=== PATIENT | female | born 1980 | race Hispanic/Latino ===

== ENCOUNTER 2017-12-18 17:43 | Emergency (ER) | payer SELFPAY | END 2017-12-18 19:11 | disposition home or self-care (01) | LOC: ERS 17:43 | DX: S61.012A Laceration without foreign body of left thumb without damage to nail, initial encounter (principal); W26.0XXA Contact with knife, initial encounter | CPT/HCPCS: 99282 ==

== ENCOUNTER 2018-08-06 12:14 | Emergency (ER) | payer SELFPAY ==
[2018-08-06] MEDS ORDERED: Ketorolac Tromethamine 30 MG/ML VIAL ONE (16:23)
== END 2018-08-06 16:40 | disposition home or self-care (01) ==
LOC: ERS 12:14
DX: M79.622 Pain in left upper arm (principal)
CPT/HCPCS: 96372; J1885

== ENCOUNTER 2019-09-12 07:59 | Outpatient (CLI) | payer OTHER ==
--- NOTE | 2019-09-12 09:02 | CT ---
CT ABDOMEN AND PELVIS WITH IV CONTRAST: DATE: 09/12/2019. PROVIDED CLINICAL HISTORY: Nausea and vomiting. FINDINGS: Comparison 06/14/2015. The visualized lung bases are free of significant opacity. The liver, spleen, pancreas, kidneys, and adrenal glands demonstrate an unremarkable CT appearance. Heterogeneous density within the gallbladder lumen likely reflects gallstones. There is no evidence for gallbladder distention or pericholecystic inflammatory change. There is no bowel dilatation, inflammatory fat stranding, free fluid, or lymph node enlargement appar ent. There is moderate colonic fecal retention. A septate uterus is demonstrated. The osseous structures demonstrate no concerning lytic or blastic lesions. IMPRESSION: 1. Probable cholelithiasis without evidence for acute findings related to the gallbladder. 2. Other findings as described. POS: UNA
== END 2019-09-12 08:00 | disposition home or self-care (01) ==
LOC: BICCT 07:59 → SCSCT 08:00
PROVIDERS: ATTEND Physician Assistant Medical
DX: D64.9 Anemia, unspecified (principal); R11.2 Nausea with vomiting, unspecified
CPT/HCPCS: 74177

== ENCOUNTER 2020-04-09 18:45 | Emergency (ER) | payer BC ==
[2020-04-09 19:53] LABS: #Eosinphils 0.1 thou/uL (0.0-0.7); #Lymphocytes 1.5 thou/uL (1.20-3.40); #Monocytes 0.7 thou/uL (0.11-0.59); #Neutrophils 9.4 thou/uL (1.40-6.50); %Basophils 0.3 % (0.0-1.0); %Eosinophils 0.6 % (0.0-10.0); %Lymphocytes 12.8 % (21.0-51.0); %Monocytes 5.6 % (0.0-10.0); %Neutrophils 80.7 % (42.0-75.0); Hemoglobin 12.9 g/dL (12.0-16.0); Mean Corpuscular HGB CONC 33.1 g/dL (32.0-36.0); Mean Corpuscular Hemoglobin 25.2 pg (27.0-31.0); Mean Corpuscular Volume 76.1 fL (78.0-98.0); Mean Platelet Volume 8.9 fL (7.4-10.4); Platelet Count 270 thou/uL (130-400); RBC Distribution Width 16.5 % (11.5-14.5); Red Blood Cell (RBC) Count 5.11 mill/uL (4.20-5.40); White Blood Cell (WBC) Count 11.7 thou/uL (4.8-10.8)
[2020-04-09 20:16] LABS: BHCG - Serum Negative (NEGATIVE); Pregs Control Background? CLEAR/WHITE (CLR/WHITE); Pregs Control Bar Appear? YES (CONTROL BAR)
[2020-04-09 20:19] LABS: ALT (SGPT) 19 U/L (8-55); AST (SGOT) 40 U/L (5-34); Albumin 4.2 g/dL (3.5-5.0); Alkaline Phosphatase 98 U/L (40-110); Anion Gap 14 mmol/L (10-20); BUN (Urea Nitrogen) 10 mg/dL (7.0-18.7); Bilirubin, Total 0.2 mg/dL (0.2-1.2); Calc. Creatinine Clearance 0 mL/min (70-130); Calcium 9.2 mg/dL (7.8-10.44); Carbon Dioxide 23 mmol/L (22-29); Chloride 104 mmol/L (98-107); Estimated GFR-MDRD Greater than 90; Globulin 3.4 g/dL (2.4-3.5); Glucose 146 mg/dL (70-105); Lipase 63 U/L (8-78); Potassium 3.5 mmol/L (3.5-5.1); Protein, Total 7.6 g/dL (6.0-8.3); Sodium 137 mmol/L (136-145)
[2020-04-09] MEDS ORDERED: Ondansetron ODT 4 MG TAB ONE (21:29)
[2020-04-09] MEDS ORDERED: Mag-Al 1200 mg/1200 mg/30 ML UDCUP ONE (21:29)
[2020-04-09] MEDS ORDERED: Lidocaine Viscous Sol 2% 15 ml UD Cup ONE (21:29)
--- NOTE | 2020-04-11 17:13 | EKG ---
Test Reason : Blood Pressure : / mmHG Vent. Rate : 065 BPM Atrial Rate : 065 BPM P-R Int : 134 ms QRS Dur : 086 ms QT Int : 370 ms P-R-T Axes : 047 -23 027 degrees QTc Int : 384 ms Normal sinus rhythm Normal ECG Confirmed by KENNEDY BERMEO DO ([id number]), purchase request editor COURTNEY UMANA ([id number]) on 04/11/2020 5:13:24 PM Referred By: Confirmed By:KENNEDY BERMEO DO
== END 2020-04-09 22:39 | disposition home or self-care (01) ==
LOC: ERS 18:45
DX: K29.70 Gastritis, unspecified, without bleeding (principal)
CPT/HCPCS: 36415; 80053; 83690; 84703; 85025; 93005; Q0162

== ENCOUNTER 2020-08-08 10:21 | Emergency (ER) | payer BC | END 2020-08-08 11:42 | disposition home or self-care (01) | LOC: ERS 10:21 | DX: M72.2 Plantar fascial fibromatosis (principal) ==

== ENCOUNTER 2020-08-24 13:02 | Emergency (ER) | payer BC ==
[2020-08-24 14:38] LABS: #Lymphocytes 1.5 thou/uL (1.20-3.40); #Monocytes 0.6 thou/uL (0.11-0.59); #Neutrophils 9.4 thou/uL (1.40-6.50); %Basophils 0.1 % (0.0-1.0); %Eosinophils 0.3 % (0.0-10.0); %Lymphocytes 13.3 % (21.0-51.0); %Monocytes 5.2 % (0.0-10.0); Hemoglobin 11.6 g/dL (12.0-16.0); Mean Corpuscular Volume 75.2 fL (78.0-98.0); Mean Platelet Volume 8.2 fL (7.4-10.4); Platelet Count 326 thou/uL (130-400); RBC Distribution Width 14.3 % (11.5-14.5); Red Blood Cell (RBC) Count 4.81 mill/uL (4.20-5.40); White Blood Cell (WBC) Count 11.6 thou/uL (4.8-10.8)
[2020-08-24 15:04] LABS: ALT (SGPT) 14 U/L (8-55); AST (SGOT) 25 U/L (5-34); Albumin 4.1 g/dL (3.5-5.0); Alkaline Phosphatase 90 U/L (40-110); Anion Gap 14 mmol/L (10-20); BUN (Urea Nitrogen) 11 mg/dL (7.0-18.7); Bilirubin, Total 0.2 mg/dL (0.2-1.2); Calc. Creatinine Clearance 0 mL/min (70-130); Calcium 9.1 mg/dL (7.8-10.44); Carbon Dioxide 25 mmol/L (22-29); Chloride 103 mmol/L (98-107); Globulin 3.2 g/dL (2.4-3.5); Glucose 105 mg/dL (70-105); Potassium 4.1 mmol/L (3.5-5.1); Protein, Total 7.3 g/dL (6.0-8.3); Sodium 138 mmol/L (136-145)
== END 2020-08-24 17:15 | disposition home or self-care (01) ==
LOC: ERS 13:02
DX: K80.20 Calculus of gallbladder without cholecystitis without obstruction (principal); F17.210 Nicotine dependence, cigarettes, uncomplicated
CPT/HCPCS: 36415; 76705; 80053; 83690; 85025; 93005

== ENCOUNTER 2020-09-15 14:45 | Outpatient (CLI) | payer BC ==
[2020-09-16 04:50] LABS: SARS-CoV-2 PCR by NAA Not Detected (NotDetected)
== END 2020-09-15 14:46 | disposition home or self-care (01) ==
LOC: LABBT 14:45
PROVIDERS: ATTEND Specialist
DX: Z01.812 Encounter for preprocedural laboratory examination (principal); K80.10 Calculus of gallbladder with chronic cholecystitis without obstruction; R10.11 Right upper quadrant pain; Z20.822 Contact with and (suspected) exposure to COVID-19
CPT/HCPCS: 87635; U0003; U0005

== ENCOUNTER 2020-09-18 05:44 | Day surgery (SDC) | payer BC ==
[2020-09-17 09:46] VITALS: BMI 37.2
[2020-09-18] MEDS ORDERED: SUGAMMADEX SODIUM 200 MG/2 ML VIAL ONE (06:25)
[2020-09-18] MEDS ORDERED: Fentanyl 100 MCG/2 ML VIAL ONE ×2 (06:25→09:17)
[2020-09-18] MEDS ORDERED: Iothalamate Meglumine 60% 50 ML VIAL FS ONE (06:45)
[2020-09-18] MEDS ORDERED: XYLOCAINE 2%-EPI 1:100,000 20 ML VIAL ONE (06:45)
[2020-09-18] MEDS ORDERED: Bupivacaine PF 0.5% 30 ML VIAL ONE (06:45)
[2020-09-18] MEDS ORDERED: Ketorolac Tromethamine 30 MG/ML VIAL ONE ×2 (06:54→08:01)
[2020-09-18] MEDS ORDERED: Levofloxacin 500 mg/D5W 100 ml Premix Bag ONE (06:54)
[2020-09-18] MEDS ORDERED: Scopolamine 1.5 mg/72 hour Patch ONE (06:54)
[2020-09-18] MEDS ORDERED: Ondansetron PF 4 MG/2 ML Vial ONE ×2 (06:54→08:01)
[2020-09-18] MEDS ORDERED: Acetaminophen 500 MG TAB ONE (06:55)
[2020-09-18] MEDS ORDERED: Lidocaine 1% PF 5 ML VIAL ONE (08:01)
[2020-09-18] MEDS ORDERED: Rocuronium Bromide 10 MG/ML (10ML VIAL) ONE (08:01)
[2020-09-18] MEDS ORDERED: PROPOFOL 200 MG/20 ML VIAL ONE (08:01)
[2020-09-18] MEDS ORDERED: Dexamethasone 20 MG/5 ML VIAL ONE (08:01)
[2020-09-18] MEDS ORDERED: HYDROmorphone 2 MG/ML VIAL ONE (08:47)
[2020-09-18] MEDS ORDERED: Morphine 2 MG/ML VIAL ONE (09:50)
[2020-09-18] MEDS ORDERED: HYDROcodone/Acetaminophen 5/325 mg Tablet ONE (10:35)
== END 2020-09-18 11:20 | disposition home or self-care (01) ==
LOC: SDC 05:44
PROVIDERS: ATTEND Specialist
PROC: 0FT44ZZ Resection of Gallbladder, Percutaneous Endoscopic Approach (ICD-10-PCS; principal; 2020-09-18)
DX: K80.10 Calculus of gallbladder with chronic cholecystitis without obstruction (principal); F17.210 Nicotine dependence, cigarettes, uncomplicated; Z79.2 Long term (current) use of antibiotics; Z79.899 Other long term (current) drug therapy
CPT/HCPCS: 88304; J1100; J1170; J1610; J1885; J1956; J2270; J2405; J2704; J3010; Q9961; S0020

== ENCOUNTER 2020-10-22 12:29 | Outpatient (CLI) | payer BC | END 2020-10-22 12:30 | disposition home or self-care (01) | LOC: BICMAMMO 12:29 | PROVIDERS: ATTEND Physician Assistant | DX: Z12.31 Encounter for screening mammogram for malignant neoplasm of breast (principal); N64.89 Other specified disorders of breast | CPT/HCPCS: 77063; 77067 ==

== ENCOUNTER 2020-10-27 08:32 | Outpatient (CLI) | payer BC | END 2020-10-27 08:33 | disposition home or self-care (01) | LOC: BICMAMMO 08:32 | PROVIDERS: ATTEND Physician Assistant | DX: R92.2 Inconclusive mammogram (principal) | CPT/HCPCS: G0279 ==

== ENCOUNTER 2021-03-02 10:42 | Outpatient (CLI) | payer BC | END 2021-03-02 10:43 | disposition home or self-care (01) | LOC: BICULT 10:42 | PROVIDERS: ATTEND Nurse Practitioner Family | DX: D50.9 Iron deficiency anemia, unspecified (principal); D25.9 Leiomyoma of uterus, unspecified; N83.201 Unspecified ovarian cyst, right side | CPT/HCPCS: 76856; 93976 ==

== ENCOUNTER 2021-04-07 11:42 | Outpatient (CLI) | payer BC | END 2021-04-07 11:43 | disposition home or self-care (01) | LOC: BICRAD 11:42 → BICULT 11:43 | PROVIDERS: ATTEND Nurse Practitioner Family | DX: R10.9 Unspecified abdominal pain (principal); M54.50 Low back pain, unspecified; M79.604 Pain in right leg; R11.10 Vomiting, unspecified | CPT/HCPCS: 74018; 76770 ==

== ENCOUNTER 2021-04-23 08:53 | Outpatient (CLI) | payer BC | END 2021-04-23 08:54 | disposition home or self-care (01) | LOC: BICCT 08:53 | PROVIDERS: ATTEND Nurse Practitioner Family | DX: M54.50 Low back pain, unspecified (principal) | CPT/HCPCS: 72131 ==

== ENCOUNTER 2021-05-06 09:36 | Outpatient (CLI) | payer BC | END 2021-05-06 09:37 | disposition home or self-care (01) | LOC: BICMAMMO 09:36 | PROVIDERS: ATTEND Physician Assistant | DX: R92.8 Other abnormal and inconclusive findings on diagnostic imaging of breast (principal); N64.89 Other specified disorders of breast | CPT/HCPCS: G0279 ==

== ENCOUNTER 2021-05-26 07:20 | Emergency (ER) | payer BC ==
[2021-05-26 15:16] LABS: SARS-CoV-2 PCR by NAA DETECTED (NotDetected)
== END 2021-05-26 08:57 | disposition home or self-care (01) ==
LOC: ERS 07:20
DX: U07.1 COVID-19 (principal); R91.1 Solitary pulmonary nodule; F17.210 Nicotine dependence, cigarettes, uncomplicated
CPT/HCPCS: 71045; 93005; U0003; U0005

== ENCOUNTER 2021-12-02 09:30 | Emergency (ER) | payer OTHER, SELFPAY | END 2021-12-02 10:50 | disposition home or self-care (01) | LOC: ERS 09:30 | DX: S93.402A Sprain of unspecified ligament of left ankle, initial encounter (principal); D64.9 Anemia, unspecified; W01.0XXA Fall on same level from slipping, tripping and stumbling without subsequent striking against object, initial encounter ==

== ENCOUNTER 2022-01-31 09:53 | Outpatient (CLI) | payer OTHER | END 2022-01-31 09:54 | disposition home or self-care (01) | LOC: BICMAMMO 09:53 | PROVIDERS: ATTEND Physician Assistant | DX: N64.3 Galactorrhea not associated with childbirth (principal); R92.8 Other abnormal and inconclusive findings on diagnostic imaging of breast | CPT/HCPCS: 77066; G0279 ==

== ENCOUNTER 2022-07-05 12:49 | Emergency (ER) | payer OTHER, SELFPAY ==
[2022-07-05 13:21] LABS: #Eosinphils 0.1 thou/uL (0.0-0.7); #Monocytes 0.5 thou/uL (0.11-0.59); #Neutrophils 4.3 thou/uL (1.40-6.50); %Basophils 0.1 % (0.0-1.0); %Eosinophils 1.7 % (0.0-10.0); %Lymphocytes 16.3 % (21.0-51.0); %Monocytes 8.5 % (0.0-10.0); %Neutrophils 73.4 % (42.0-75.0); Hemoglobin 14.3 g/dL (12.0-16.0); Mean Corpuscular HGB CONC 34.7 g/dL (32.0-36.0); Mean Corpuscular Volume 86.5 fl (78.0-98.0); Mean Platelet Volume 7.7 fL (7.4-10.4); Platelet Count 220 10x3/uL (130-400); RBC Distribution Width 12.1 % (11.5-14.5); Red Blood Cell (RBC) Count 4.78 mill/uL (4.20-5.40); White Blood Cell (WBC) Count 5.9 10x3/uL (4.8-10.8)
[2022-07-05 13:44] LABS: ALT (SGPT) 22 U/L (8-55); AST (SGOT) 27 U/L (5-34); Alkaline Phosphatase 91 U/L (40-110); Anion Gap 12 mmol/L (10-20); BUN (Urea Nitrogen) 7 mg/dL (7.0-18.7); Bilirubin, Total 0.5 mg/dL (0.2-1.2); Calc. Creatinine Clearance 0 mL/min (70-130); Carbon Dioxide 24 mmol/L (22-29); Chloride 106 mmol/L (98-107); Estimated GFR 115; Globulin 3.1 g/dL (2.4-3.5); Glucose 106 mg/dL (70-105); Potassium 3.7 mmol/L (3.5-5.1); Protein, Total 7.1 g/dL (6.0-8.3); Sodium 138 mmol/L (136-145)
[2022-07-05 15:04] LABS: SARS-CoV-2 NAA Rapid Test DETECTED (NotDetected)
== END 2022-07-05 14:32 | disposition home or self-care (01) ==
LOC: ERS 12:49
DX: R05.9 Cough, unspecified (principal); Z20.822 Contact with and (suspected) exposure to COVID-19
CPT/HCPCS: 36415; 71045; 80053; 84484; 85025; 93005

== ENCOUNTER 2023-02-15 05:31 | Day surgery (SDC) | payer OTHER ==
[2023-02-13 12:06] VITALS: BMI 40.7
[2023-02-15] MEDS ORDERED: cefOXitin 2 GM VIAL ONE (07:05)
[2023-02-15] MEDS ORDERED: Sodium Chloride 0.9% 100 ML ONE (07:05)
[2023-02-15] MEDS ORDERED: Famotidine/PF 20 mg/2ml Vial ONE (07:35)
[2023-02-15] MEDS ORDERED: Midazolam HCl 2 mg/2 ml Vial ONE (07:35)
[2023-02-15] MEDS ORDERED: Bupivacaine 0.25% HCL 30 ML VIAL ONE (08:11)
[2023-02-15] MEDS ORDERED: Lidocaine 2% PF 5 ML VIAL ONE (08:11)
[2023-02-15] MEDS ORDERED: EPINEPHrine 1 MG/ML AMP ONE (08:11)
[2023-02-15] MEDS ORDERED: fentaNYL PF 100 MCG/2 ML SYRINGE ONE (08:39)
[2023-02-15] MEDS ORDERED: SUGAMMADEX SODIUM 200 MG/2 ML VIAL ONE (08:40)
[2023-02-15] MEDS ORDERED: Dexamethasone 20 MG/5 ML VIAL ONE (08:58)
[2023-02-15] MEDS ORDERED: Lidocaine 1% PF 5 ML VIAL ONE (08:58)
[2023-02-15] MEDS ORDERED: NEOSTIGMINE 3 MG/3 ML SYR 3 MG/3 ML SYRINGE ONE (08:58)
[2023-02-15] MEDS ORDERED: Glycopyrrolate 0.2 MG/ML 5 ML SYRINGE ONE (08:58)
[2023-02-15] MEDS ORDERED: PROPOFOL 200 MG/20 ML VIAL ONE (08:58)
[2023-02-15] MEDS ORDERED: Rocuronium Bromide 10 MG/ML (10ML VIAL) ONE (08:58)
[2023-02-15] MEDS ORDERED: Ketorolac Tromethamine 30 MG/ML VIAL ONE (08:58)
[2023-02-15] MEDS ORDERED: Ondansetron PF 4 MG/2 ML Vial ONE (08:58)
[2023-02-15] MEDS ORDERED: fentaNYL 50 mcg/mL 1 mL Vial ONE ×4 (09:56→10:34)
[2023-02-15] MEDS ORDERED: HYDROcodone/Acetaminophen 5/325 mg Tablet ONE (11:09)
== END 2023-02-15 11:59 | disposition home or self-care (01) ==
LOC: SDC 05:31
PROVIDERS: ATTEND Surgery
PROC: 06BY0ZC Excision of Hemorrhoidal Plexus, Open Approach (ICD-10-PCS; principal; 2023-02-15)
DX: K64.2 Third degree hemorrhoids (principal); F17.210 Nicotine dependence, cigarettes, uncomplicated; Z90.49 Acquired absence of other specified parts of digestive tract
CPT/HCPCS: 88304; J0171; J0694; J1100; J1885; J2001; J2250; J2405; J2704; J3010; J3490; S0020; S0028